=== PATIENT | male | born 1985 ===

== ENCOUNTER 2023-09-12 17:55 | Emergency (ER) | payer OTHER, SELFPAY ==
[2023-09-12 17:58] VITALS: BP 110/70; PULSE 77; RESP 16; O2SAT 98; BMI 25.7
--- NOTE | 2023-09-12 18:28 | ED_ITS ---
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 He has a small laceration in his webspace between his thumb and index finger. He is not up-to-date on his tetanus. He is otherwise quite healthy. He has had no range of motion deficit of his hand. Good hemostasis. Related Data Home Medications ?Medication ?Instructions ?Recorded ?Confirmed No Known Home Medications 09/12/23 09/12/23 Allergies Allergy/AdvReac Type Severity Reaction Status Date / Time No Known Drug Allergies Allergy Verified 09/12/23 18:01 Review of Systems Status of ROS: Reports: 6 or more systems reviewed and unremarkable except as noted in History and below [facility] Social History Smoking Status: Current every day smoker What tobacco products do you use: cigarettes Do you use any of these nicotine containing products: None Second hand tobacco smoke exposure: No How often do you have a drink containing alcohol: 2-3 times a week How often do you have six or more drinks on one occasion: Less than monthly AUDIT-C Alcohol total score: 4 Non-prescribed substance use: marijuana (any form) Exam Narrative: Exam Narrative: Objective: Vital signs are within normal limits at He has got a small 3/4 cm laceration that is superficial and tends an shoulder through the web space between the thumb and index finger. Normal neurovascular and functional evaluation of his hand and fingers. Const: Vital Signs, click to edit/add: Vital Signs - 24 hr 09/12/23 17:58 Pulse Rate [Pulse Oximeter] 77 Respiratory Rate 16 Blood Pressure [Ri ght Upper Arm] 110/70 Pulse Oximetry 98 Oxygen Delivery Me thod Room Air Course Vital Signs Vital signs: Initial Vital Signs Temperature Source Temporal Artery Scan 09/12/23 17:58 Pulse Rate 77 09/12/23 17:58 Respiratory Rate 16 09/12/23 17:58 Blood Pressure 110/70 09/12/23 17:58 Blood Pressure Mean 83 09/12/23 17:58 Blood Pressure Position Sitting 09/12/23 17:58 Pulse Oximetry 98 09/12/23 17:58 Oxygen Delivery Method Room Air 09/12/23 17:58 Vital Signs Pulse Rate 77 09/12/23 17:58 Respiratory Rate 16 09/12/23 17:58 Blood Pressure 110/70 09/12/23 17:58 Pulse Oximetry 98 09/12/23 17:58 Oxygen Delivery Method Room Air 09/12/23 17:58 Pulse Rate 77 09/12/23 17:58 Respiratory Rate 16 09/12/23 17:58 Blood Pressure 110/70 09/12/23 17:58 Pulse Oximetry 98 09/12/23 17:58 Oxygen Delivery Method Room Air 09/12/23 17:58 Medications Administered Medications: Discontinued Medications Generic Name Dose Route Start Last Admin Trade Name Freq PRN Reason Stop Dose Admin Diphtheria/Tetanus/Acell Pertussis 0.5 ml 09/12/23 18:26 09/12/23 18:35 Tetanus/Diphth/Pertussis 0.5 Ml Syringe IM 09/12/23 18:27 0.5 ml .ONCE ONE Administration Medical Decision Making MDM Narrative Medical decision making narrative: [age] year white male with a small cut on the webspace of between his thumb and fingers for finger. At this point he will be updated his Tdap, after sterile cleansing and irrigation I Dermabonded shot the wound with good skin edge approximation good hemostasis. Would recommend keeping this dry for the next week. Would also watch for redness or infection. Return if problems or concerns. Would keep send out a water at work for the next 5-7 days. Discharge Plan Discharge Clinical Impression: Hand laceration Patient Disposition: Home, Self-Care Condition: Improved Additional Instructions: Keep the hand dry for at least 3-4 days, would have it in water at work for at least 5-7 days. May use rubber glove to cover at work. Watch for redness infection, return if problems or concerns. Activity Level: Light activity Discharge Diet: Regular Prescriptions: No Action No Known Home Medications Stand Alone Forms: [facility] Info Instructions
[2023-09-12] MEDS: TETANUS/DIPHTH/PERTUSSIS 0.5 ML SYRINGE IM (18:35)
--- OUTSIDE RECORDS SUMMARY | 2023-09-12 18:42 | XMS_ITS | Continuity of Care Document ---
Author Name [facility] Organization [facility] Care Team Providers Care Lead Web Developer Name Role Phone [facility] Unavailable Unavailable Problems Combined list of problems from Department of Defense and Veterans Affairs facilities. It does not include entries that were removed or entered in error. Problem Status Onset Date Problem Type Date of Resolution Comments Source Exposure to potentially hazardous substance ([facility] [id number]) Active 05/16/19 24 Condition May 16, 2023 Entered By: ТАТЬЯНА PRUITT Comment: [facility] Documentation Initiative [facility] joint stiffness of the wrist Active Condition DoD visit for: screening mental / developmental disorders Inactive Condition DoD visit for: ears / hearing exam Active Condition DoD visit for: screening exam depression Inactive Condition DoD tobacco use Active Condition DoD Need For Prophylactic Antibiotics Inactive Condition DoD visit for: services physical Active Condition DoD visit for: request expert evidence Inactive Condition DoD joint pain, localized in the wrist Active Condition [facility] Removal Of Sutures Inactive Condition [facility] Surgical Dressing Change Inactive Condition [facility] Observation For Suspected Condition Active Condition DoD Need For Vaccination MMR Inactive Condition DoD visit for: screening exam pulmonary tuberculosis Active Condition DoD visit: ears/hearing exam for hearing conservation, treatment Active Condition DoD visit for: services physical accession Active Condition [facility] Alcohol abuse Active Condition [facility] Cannabis dependence Active Condition [facility] Nicotine dependence Active Condition [facility] Stress and adjustment reaction Active Condition [facility] Well adult Active Condition [facility] Alcohol dependence Inactive Condition 09/13/2022 [facility] PAIN, NECK/CERVICALGIA Inactive Condition 07/06/2022 [facility] Diagnosis: ICD-10-CM F43.9 Reaction to severe stress, unspecified Active Diagnosis [facility] Diagnosis: ICD-10-CM F12.20 Cannabis dependence, uncomplicated Active Diagnosis [facility] Diagnosis: ICD-10-CM R07.9 Chest pain, unspecified Active Diagnosis [facility] Diagnosis: ICD-10-CM Z13.6 Encounter for screening for cardiovascular disorders Active Diagnosis [facility] Medications Combined list of outpatient medications from Department of Defense and Veterans Affairs facilities.Medications provided include 1) outpatient medications from the last 15 months, and 2) patient-reported medications. Medication Details Route Status Patient Instructions Prescription Expires Prescription Number Last Dispense Date Ordering Provider Order Date Order Qty Source NICOTINE POLACRILEX 4MG TAB,CHEWG GUM NICOTINE POLACRIL EX 4MG TAB,CHEW G GUM Active CHEW 1 PIECE IN MOUTH EVERY HOUR DIRECTED TO QUIT TOBACCO TO QUIT TOBACCO Nov 23, 2022 110 Nov 24, 2023 [id number] Nov 30, 2022 NESS,DONNA VIA O [facility] ORAL ACTIVE 11/24/2023 [id number] NESS,SYLV IA O 2022 110 [facility] Allergies, Adverse Reactions, Alerts Combined list of allergies from [facility] facilities. It does not include entries that were removed or entered in error. Substance Category Reaction Severity Reaction type Status Date Reported Comments Source No Known Allergies Drug allergy (disorder) active 06/25/2009 Kory Mixon [place] Immunizations Combined list of available immunizations from the [facility] and [facility] facilities. Immunization Series Date Given Administered By Site Reaction Lot Number CVX Code Drug Line Service Supervisor Status Comments Source TDAP 2013 115 complet ed GlaxoSmit hKline,52 DM5,08/09 [facility] INFLUENZA, UNSPECIFIED FORMULATION 2012 88 complet ed [facility] influenza, live, intranasal, quadrivalent 1 2012 [id number] [place] [employer]. (MED) complet ed influenza , live, intranasa l, quadrival ent [facility] anthrax vaccine 4 2012 [id number] [facility] [employer] [facility] [place] ([facility]) complet ed anthrax vaccine [facility] anthrax vaccine 3 2011 [id number] [employer] [facility] Josue (MIP) complet ed anthrax vaccine DoD typhoid Vi capsular polysaccharid e vaccine 1 2011 [id number] Sanofi Pasteur ([facility]) complet ed typhoid Vi capsular polysacch aride vaccine DoD Influenza, seasonal, injectable, preservative free 1 2011 [id number] Sanofi Pasteur ([facility]) complet ed Influenza , seasonal, injectabl e, preservat melo free DoD Influenza, seasonal, injectable, preservative free 1 2010 [id number] 140 Sanofi Pasteur ([facility]) complet ed Influenza , seasonal, injectabl e, preservat melo free DoD hepatitis A vaccine, adult dosage 2 2010 [id number] 52 SmithKline (SKB) complet ed hepatitis A vaccine, adult dosage DoD influenza virus vaccine, split virus (incl. purified surface antigen)-reti red CODE 1 2009 [id number] 15 Sanofi Pasteur ([facility]) complet ed influenza virus vaccine, split virus (incl. purified surface antigen)- retired CODE DoD anthrax vaccine 2 2009 [id number] [employer] [place] ([facility]) complet ed anthrax vaccine DoD anthrax vaccine 1 2009 [id number] [employer] [place] ([facility]) complet ed anthrax vaccine DoD vaccinia (smallpox) vaccine 1 2009 [id number] 75 Unknown (UNK) complet ed vaccinia (smallpox ) vaccine DoD typhoid Vi capsular polysaccharid e vaccine 1 2009 [id number] Sanofi Pasteur ([facility]) complet ed typhoid Vi capsular polysacch aride vaccine DoD measles, mumps and rubella virus vaccine 1 2009 [id number] SmithKline (SKB) complet ed measles, mumps and rubella virus vaccine DoD measles, mumps and rubella virus vaccine 1 2009 [id number] 03 Merck (MSD) complet ed measles, mumps and rubella virus vaccine DoD varicella virus vaccine 1 2009 [id number] 21 Unknown (UNK) Not Given varicella virus vaccine DoD hepatitis B vaccine, adult dosage 1 2009 [id number] 43 Unknown (UNK) Not Given hepatitis B vaccine, adult dosage DoD hepatitis A vaccine, adult dosage 1 2009 [id number] 52 Smithine (SKB) complet ed hepatitis A vaccine, adult dosage DoD influenza virus vaccine, live, attenuated, for intranasal use 1 2009 [id number] 111 Sanofi Pasteur ([facility]) complet ed influenza virus vaccine, live, attenuate d, for intranasa l use DoD Novel influenza-H1N 1-09, injectable 1 2009 [id number] 127 Novartis Visualant l Diandra. (NOV) complet ed Novel influenza -F0C1-32, injectabl e DoD poliovirus vaccine, inactivated 1 2009 [id number] 10 Sanofi Pasteur ([facility]) complet ed polioviru s vaccine, inactivat ed DoD meningococcal polysaccharid e (groups A, C, Y and W-135) diphtheria toxoid conjugate vaccine (MCV4P) 1 2009 [id number] 114 SmithKline (SKB) complet ed meningoco ccal polysacch aride (groups A, C, Y and W-135) diphtheri a toxoid conjugate vaccine (MCV4P) DoD tetanus toxoid, reduced diphtheria toxoid, and acellular pertu is vaccine, adsorbed 1 2009 [id number] 115 Sanofi Pasteur ([facility]) complet ed tetanus toxoid, reduced diphtheri a toxoid, and acellular pertussis vaccine, adsorbed DoD Novel influenza-H1N 1-09, injectable 1 2009 [id number] 1 127 Novartis GetQuik. (NOV) complet ed Novel influenza -U7D4-64, injectabl e DoD Results Combined list of recent chemistry, hematology and other laboratory results from Department of Defense and Veterans Affairs, ranging from 15 months to all on record, depending upon the facility. Order Name Results Value Reference Range Date Interpretation Specimen Comments Source HEMOGLOBI N A1C HEMOGLOBIN A1C/HEMOGLO BIN.TOTAL IN BLOOD 5.2 4.0 - 6.0 07/06 Specimen Type: BLOOD Comment: Values obtained from A1C measurement s can vary. For typical A1C assays, a reported value of 7.0 could actually be between 6.7 and 7.3 if measured by a reference method. A reported value of 9.0 could actually be between 8.7 and 9.3. Ref: http://www. ngsp.org/[place] Pdata.asp Ordering Provider: VALENTINE ABRAHAM Report Released Date/Time: Jul 06, 2022 09:25 AM Reporting Lab: [facility] [address] Performing Lab: [facility] [address] [facility] LEUKOCYTES [#/VOLUME] IN BLOOD BY AUTOMATED COUNT 6.51 10*3/u L 4.0 - 11.0 07/06 Specimen Type: BLOOD No comment entered. Ordering Provider: VALENTINE ABRAHAM Report Released Date/Time: Jul 06, 2022 09:25 AM Reporting Lab: [facility] [address] Performing Lab: [facility] [address] [place] [facility] CBC ERYTHROCYTE S [#/VOLUME] IN BLOOD BY AUTOMATED COUNT 4.84 10*6/u L 4.6 - 6.2 07/06 Specimen Type: BLOOD No comment entered. Ordering Provider: VALENTINE ABRAHAM Report Released Date/Time: Jul 06, 2022 09:25 AM Reporting Lab: [facility] [address] Performing Lab: [facility] [address] [place] [facility] CBC HEMOGLOBIN [MASS/VOLUM E] IN BLOOD 14.8 g/dL 13.5 - 17.9 07/06 Specimen Type: BLOOD No comment entered. Ordering Provider: VALENTINE ABRAHAM Report Released Date/Time: Jul 06, 2022 09:25 AM Reporting Lab: [facility] [address] Performing Lab: [facility] [address] [place] [facility] CBC HEMATOCRIT [VOLUME FRACTION] OF BLOOD BY AUTOMATED COUNT 44.4 41 - 54 07/06 Specimen Type: BLOOD No comment entered. Ordering Provider: VALENTINE ABRAHAM Report Released Date/Time: Jul 06, 2022 09:25 AM Reporting Lab: [facility] [address] Performing Lab: [facility] [address] [place] [facility] CBC MCV [ENTITIC VOLUME] BY AUTOMATED COUNT 91.7 fL 80 - 100 07/06 Specimen Type: BLOOD No comment entered. Ordering Provider: VALENTINE ABRAHAM Report Released Date/Time: Jul 06, 2022 09:25 AM Reporting Lab: [facility] [address] Performing Lab: [facility] [address] [facility] [facility] CBC MCH [ENTITIC MASS] BY AUTOMATED COUNT 30.6 pg 27 - 33 07/06 Specimen Type: BLOOD No comment entered. Ordering Provider: VALENTINE ABRAHAM Report Released Date/Time: Jul 06, 2022 09:25 AM Reporting Lab: [facility] [address] Performing Lab: [facility] [address] [place] [facility] CBC MCHC [MASS/VOLUM E] BY AUTOMATED COUNT 33.3 g/dL 32.0 - 37.5 07/06 Specimen Type: BLOOD No comment entered. Ordering Provider: VALENTINE ABRAHAM Report Released Date/Time: Jul 06, 2022 09:25 AM Reporting Lab: [facility] [address] Performing Lab: [facility] [address] [place] [facility] CBC PLATELETS [#/VOLUME] IN BLOOD BY AUTOMATED COUNT 202 10*3/u L 150 - 400 07/06 Specimen Type: BLOOD No comment entered. Ordering Provider: VALENTINE ABRAHAM Report Released Date/Time: Jul 06, 2022 09:25 AM Reporting Lab: [facility] [address] Performing Lab: [facility] [address] [place] [facility] CBC PLATELET MEAN VOLUME [ENTITIC VOLUME] IN BLOOD BY AUTOMATED COUNT 9.6 fL 7.4 - 10.4 07/06 Specimen Type: BLOOD No comment entered. Ordering Provider: VALENTINE ABRAHAM Report Released Date/Time: Jul 06, 2022 09:25 AM Reporting Lab: [facility] [address] Performing Lab: [facility] [address] [place] [facility] CBC ERYTHROCYTE DISTRIBUTIO N WIDTH [RATIO] BY AUTOMATED COUNT 13.4 11.5 - 14.5 07/06 Specimen Type: BLOOD No comment entered. Ordering Provider: VALENTINE ABRAHAM Report Released Date/Time: Jul 06, 2022 09:25 AM Reporting Lab: [facility] [address] Performing Lab: [facility] [phone] [place] [facility] BASIC METABOLIC PANEL+MG CREATININE [MASS/VOLUM E] IN SERUM OR PLASMA 0.8 mg/dL 0.7 - 1.2 07/06 Specimen Type: PLASMA No comment entered. Ordering Provider: VALENTINE ABRAHAM Report Released Date/Time: Jul 06, 2022 09:25 AM Reporting Lab: [facility] [address] Performing Lab: [facility] [address] [place] [facility] BASIC METABOLIC PANEL+MG UREA NITROGEN [MASS/VOLUM E] IN SERUM OR PLASMA 24 mg/dL 8 - 26 07/06 Specimen Type: PLASMA No comment entered. Ordering Provider: VALENTINE ABRAHAM Report Released Date/Time: Jul 06, 2022 09:25 AM Reporting Lab: [facility] [address] Performing Lab: [facility] [address] [place] [facility] BASIC METABOLIC PANEL+MG GLUCOSE [MASS/VOLUM E] IN SERUM OR PLASMA 98 mg/dL 70 - 100 07/06 Specimen Type: PLASMA No comment entered. Ordering Provider: VALENTINE ABRAHAM Report Released Date/Time: Jul 06, 2022 09:25 AM Reporting Lab: [facility] [address] Performing Lab: [facility] [address] [place] [facility] BASIC METABOLIC PANEL+MG SODIUM [MOLES/VOLU ME] IN SERUM OR PLASMA 141 mmol/L 136 - 145 07/06 Specimen Type: PLASMA No comment entered. Ordering Provider: VALENTINE ABRAHAM Report Released Date/Time: Jul 06, 2022 09:25 AM Reporting Lab: [facility] [address] Performing Lab: [facility] [address] [place] [facility] BASIC METABOLIC PANEL+MG POTASSIUM [MOLES/VOLU ME] IN SERUM OR PLASMA 4.0 mmol/L 3.5 - 5.1 07/06 Specimen Type: PLASMA No comment entered. Ordering Provider: VALENTINE ABRAHAM Report Released Date/Time: Jul 06, 2022 09:25 AM Reporting Lab: [facility] [address] Performing Lab: [facility] [address] [place] [facility] BASIC METABOLIC PANEL+MG CHLORIDE [MOLES/VOLU ME] IN SERUM OR PLASMA 109 mmol/L 98 - 107 07/06 H Specimen Type: PLASMA No comment entered. Ordering Provider: VALENTINE ABRAHAM Report Released Date/Time: Jul 06, 2022 09:25 AM Reporting Lab: [facility] [address] Performing Lab: [facility] [address] [place] [facility] BASIC METABOLIC PANEL+MG CARBON DIOXIDE, TOTAL [MOLES/VOLU ME] IN SERUM OR PLASMA 24 mmol/L 22 - 29 07/06 Specimen Type: PLASMA No comment entered. Ordering Provider: VALENTINE ABRAHAM Report Released Date/Time: Jul 06, 2022 09:25 AM Reporting Lab: [facility] [address] Performing Lab: [facility] [address] [place] [facility] BASIC METABOLIC PANEL+MG CALCIUM [MASS/VOLUM E] IN SERUM OR PLASMA 9.0 mg/dL 8.4 - 10.2 07/06 Specimen Type: PLASMA No comment entered. Ordering Provider: VALENTINE ABRAHAM Report Released Date/Time: Jul 06, 2022 09:25 AM Reporting Lab: [facility] [address] Performing Lab: [facility] [address] [place] [facility] BASIC METABOLIC PANEL+MG MAGNESIUM [MASS/VOLUM E] IN SERUM OR PLASMA 1.9 mg/dL 1.6 - 2.6 07/06 Specimen Type: PLASMA No comment entered. Ordering Provider: VALENTINE ABRAHAM Report Released Date/Time: Jul 06, 2022 09:25 AM Reporting Lab: [facility] [address] Performing Lab: [facility] [address] [place] [facility] BASIC METABOLIC PANEL+MG ANION GAP IN SERUM OR PLASMA 8 mmol/L 5 - 15 07/06 Specimen Type: PLASMA No comment entered. Ordering Provider: VALENTINE ABRAHAM Report Released Date/Time: Jul 06, 2022 09:25 AM Reporting Lab: [facility] [address] Performing Lab: [facility] [address] [place] [facility] BASIC METABOLIC PANEL+MG GLOMERULAR FILTRATION RATE/1.73 SQ M.PREDICTED [VOLUME RATE/AREA] IN SERUM, PLASMA OR BLOOD BY CREATININE- BASED FORMULA (CKD-EPI) >90 60 07/06 Specimen Type: PLASMA No comment entered. Ordering Provider: VALENTINE ABRAHAM Report Released Date/Time: Jul 06, 2022 09:25 AM Reporting Lab: [facility] [address] Performing Lab: [facility] [address] [place] [facility] C-REACTIV E PROTEIN C REACTIVE PROTEIN [MASS/VOLUM E] IN SERUM OR PLASMA BY HIGH SENSITIVITY METHOD 1.62 mg/L <5.00 - 5.00 07/06 Specimen Type: PLASMA No comment entered. Ordering Provider: VALENTINE ABRAHAM Report Released Date/Time: Jul 06, 2022 09:25 AM Reporting Lab: [facility] [address] Performing Lab: [facility] [address] [place] [facility] LIPID PANEL,NON -FASTING CHOLESTEROL [MASS/VOLUM E] IN SERUM OR PLASMA 216 mg/dL <199 - 199 07/06 H Specimen Type: PLASMA No comment entered. Ordering Provider: VALENTINE ABRAHAM Report Released Date/Time: Jul 06, 2022 09:25 AM Reporting Lab: [facility] [address] Performing Lab: [facility] [address] [place] [facility] LIPID PANEL,NON -FASTING CHOLESTEROL IN HDL [MASS/VOLUM E] IN SERUM OR PLASMA 52 mg/dL 40 07/06 Specimen Type: PLASMA No comment entered. Ordering Provider: VALENTINE ABRAHAM Report Released Date/Time: Jul 06, 2022 09:25 AM Reporting Lab: [facility] [address] Performing Lab: [facility] [address] [place] [facility] LIPID PANEL,NON -FASTING CHOLESTEROL IN LDL [MASS/VOLUM E] IN SERUM OR PLASMA BY CALCULATION 152 mg/dL <99 - 99 07/06 H Specimen Type: PLASMA No comment entered. Ordering Provider: VALENTINE ABRAHAM Report Released Date/Time: Jul 06, 2022 09:25 AM Reporting Lab: [facility] [address] Performing Lab: [facility] [address] [place] [facility] LIPID PANEL,NON -FASTING CHOLESTEROL IN VLDL [MASS/VOLUM E] IN SERUM OR PLASMA BY CALCULATION 12 mg/dL <29 - 29 07/06 Specimen Type: PLASMA No comment entered. Ordering Provider: VALENTINE ABRAHAM Report Released Date/Time: Jul 06, 2022 09:25 AM Reporting Lab: [facility] [address] Performing Lab: [facility] [address] [place] [facility] LIPID PANEL,NON -FASTING CHOLESTEROL NON HDL [MASS/VOLUM E] IN SERUM OR PLASMA 164 mg/dL <129 - 129 07/06 H Specimen Type: PLASMA No comment entered. Ordering Provider: VALENTINE ABRAHAM Report Released Date/Time: Jul 06, 2022 09:25 AM Reporting Lab: [facility] [address] Performing Lab: [facility] [address] [place] [facility] LIPID PANEL,NON -FASTING TRIGLYCERID E [MASS/VOLUM E] IN SERUM OR PLASMA 59 mg/dL <149 - 149 07/06 Specimen Type: PLASMA No comment entered. Ordering Provider: VALENTINE ABRAHAM Report Released Date/Time: Jul 06, 2022 09:25 AM Reporting Lab: [facility] [address] Performing Lab: [facility] [address] [place] [facility] SED RATE ERYTHROCYTE SEDIMENTATI ON RATE 4 mm/h 5 - 15 07/06 L Specimen Type: BLOOD No comment entered. Ordering Provider: VALENTINE ABRAHAM Report Released Date/Time: Jul 06, 2022 09:25 AM Reporting Lab: [facility] [address] Performing Lab: [facility] [address] [place] [facility] Encounters Combined list of: 1) Encounters from Department of Veterans Affairs facilities going back up to thelast 18 months. 2) Encounters from the Department of Defense facilities going back up to 280 months. Location Location Details Encounter Type Encounter Number Reason For Visit Attending Provider ADM Date DC Date Status Disposition Source Kory Mixon, [place]([facility] ) OUTPATIENT [id number] CARLEEN AGOSTO 05/21 Released w/o Limitations [place] RODRIGUEZ, Kory Kimberley , [place]([facility]omet [facility]) Kory Mixon Kimberley, [facility]) OUTPATIENT [id number] hearing test MATTHEW PARADA 05/21 Released w/o Limitations [place] RODRIGUEZ, Koyr Chu , [facility] ) [place] RODRIGUEZ, Kory Chu, [place]) OUTPATIENT [id number] IMM WILNER LUND 05/24 Released w/o Limitations [place] RODRIGUEZ, Kory Chu , [place]([facility] p[facility] Station ) Kory Mixon, [place]([facility] OUTPATIENT [id number] IMMUN E CHANDU CASTANEDA 06/25 Released w/o Limitations [facility], Kory Chu , [place]([facility]) Kory Mixon, [place](ER) OUTPATIENT [id number] MAYCO DE LA CRUZ 08/27 Released w/o Limitations [facility] , [place]([facility]) Kory Mixon, [place]([facility]) OUTPATIENT [id number] LIBERTAD Pathak N 08/31 Released w/o Limitations [facility] , [place]([facility] [place] RODRIGUEZ, Kory Chu, [place]([facility]) OUTPATIENT [id number] f/u remoe LIBERTAD Pathak N 09/02 Released w/o Limitations [facility] , [place]([facility], [employer] [place], [place](Physic [place]) OUTPATIENT [id number] rsrp referre d to occupat ional therapy RUPAL DOMÍNGUEZ 06/21 Released w/o Limitations [facility], [employer](Phys ical [place] ) [facility], [employer] [place]) OUTPATIENT [id number] right wrist CARMEN THOMAS 08/24 Released w/o Limitations [facility], [employer] ) [place]) OUTPATIENT [id number] emergen center CARMEN CAMPOS J 11/01 Released w/o Limitations [place] OUTPATIENT [id number] Notes Entered by: SAÚL CHIANG 09 Oct 2012 0907 ------- ------- ------- ------- -- PDHA 2796 [facility] JAMAR ARNOLD 10/09 Released w/o Limitations [place]) [place] [facility] [place] [id number] ALEX BALLESTEROS 01/27 Released w/o Limitations [place] [facility] [place] OUTPATIENT [id number] Notes Entered by: TINA VAUGHN 28 Jan 2013 1233 ------- ------- ------- ------- -- ALEX DAY 01/28 Released w/o Limitations [place]ory [place] [facility] OFFICE O/P EST MOD 30-39 MIN [id number] Diagnos is: ICD-10- CM R07.9 Chest pain, unspeci fied
MIRIAN ABRAHAM 07/06 [facility] Outpatient Encounter [id number] 07/06 [facility] ELECTROCAR DIOGRAM COMPLETE [id number] Diagnos is: ICD-10- CM Z13.6 Encount er for screeni ng for cardiov ascular disorde rs
DANIELITO TRIVEDIO TT A 07/06 [facility] Outpatient Encounter [id number] Diagnos is: ICD-10- CM R07.9 Chest pain, unspeci fied
LEIGHDONNAALLYSON A O 07/12 [facility] Outpatient Encounter [id number] 08/25 [facility] Outpatient Encounter [id number] 08/25 [facility] PSYCH DIAGNOSTIC EVALUATION [id number] Diagnos is: ICD-10- CM F12.20 Cannabi s depende nce, uncompl icated< br/> SARA LAND VIA G 09/01 [facility] [facility] Outpatient Encounter [id number] MARY MENDEZ 09/11 [facility] PSYCH DIAGNOSTIC EVALUATION [id number] Diagnos is: ICD-10- CM F12.20 Cannabi s depende nce, uncompl icated< br/> [place] DE [place]AR[place] 09/13 [facility] Outpatient Encounter [id number] 09/14 [facility] Outpatient Encounter [id number] 09/16 [facility] PSYTX W PT 45 MINUTES [id number] Diagnos is: ICD-10- CM F12.20 Cannabi s depende nce, uncompl icated< br/> [place] DE [place] 09/20 [facility] PSYTX W PT 45 MINUTES [id number] Diagnos is: ICD-10- CM F12.20 Cannabi s depende nce, uncompl icated< br/> [place] 10/04 [facility] PSYTX W PT 45 MINUTES [id number] Diagnos is: ICD-10- CM F12.20 Cannabi s depende nce, uncompl icated< br/> [place] 10/11 [facility] PSYTX W PT 45 MINUTES [id number] Diagnos is: ICD-10- CM F12.20 Cannabi s depende nce, uncompl icated< br/> [place] 11/22 [facility] PSYTX W PT 45 MINUTES [id number] Diagnos is: ICD-10- CM F12.20 Cannabi s depende nce, uncompl icated< br/> [place] 11/29 [facility] PSYTX W PT 45 MINUTES [id number] Diagnos is: ICD-10- CM F12.20 Cannabi s depende nce, uncompl icated< br/> [place] 12/06 [facility] PSYTX W PT 45 MINUTES [id number] Diagnos is: ICD-10- CM F12.20 Cannabi s depende nce, uncompl icated< br/> [place] 12/13 [facility] PSYTX W PT 45 MINUTES [id number] Diagnos is: ICD-10- CM F12.20 Cannabi s depende nce, uncompl icated< br/> [place] 12/19 [facility] HC PRO PHONE CALL 5-10 MIN [id number] Diagnos is: ICD-10- CM F12.20 Cannabi s depende nce, uncompl icated< br/> [place] 12/27 [place] [facility] PSYTX W PT 45 MINUTES [id number] Diagnos is: ICD-10- CM F12.20 Cannabi s depende nce, uncompl icated< br/> [place] 01/04 [place] [facility] PSYTX W PT 45 MINUTES [id number] Diagnos is: ICD-10- CM F12.20 Cannabi s depende nce, uncompl icated< br/> [place] 01/10 [place] [facility] PSYTX W PT 45 MINUTES [id number] Diagnos is: ICD-10- CM F12.20 Cannabi s depende nce, uncompl icated< br/> [place] 01/17 [place] [facility] PSYTX W PT 45 MINUTES [id number] Diagnos is: ICD-10- CM F12.20 Cannabi s depende nce, uncompl icated< br/> [place] 01/24 [place] [facility] PSYCH DIAGNOSTIC EVALUATION [id number] Diagnos is: ICD-10- CM F43.9 Reactio n to severe stress, unspeci fied
DECLAN HICKEY M 01/31 [facility] PSYTX W PT 45 MINUTES [id number] Diagnos is: ICD-10- CM F43.9 Reactio n to severe stress, unspeci fied
DECLAN HICKEYY M 02/06 [place] [facility] PSYTX W PT 45 MINUTES [id number] Diagnos is: ICD-10- CM F12.20 Cannabi s depende nce, uncompl icated< br/> [place] 02/07 [place] [facility] Outpatient Encounter [id number] 02/08 [facility] PSYTX W PT 45 MINUTES [id number] Diagnos is: ICD-10- CM F43.9 Reactio n to severe stress, unspeci fied
DECLAN HICKEY M 02/13 [facility] PSYTX W PT 45 MINUTES [id number] Diagnos is: ICD-10- CM F43.9 Reactio n to severe stress, unspeci fied
DECLAN HICKEY M 02/20 [facility] PSYTX W PT 30 MINUTES [id number] Diagnos is: ICD-10- CM F12.20 Cannabi s depende nce, uncompl icated< br/> [place] 03/07 [facility] PSYTX W PT 45 MINUTES [id number] Diagnos is: ICD-10- CM F43.9 Reactio n to severe stress, unspeci fied
DECLAN HICKEY M 03/13 [facility] PSYTX W PT 60 MINUTES [id number] Diagnos is: ICD-10- CM F43.9 Reactio n to severe stress, unspeci fied
DECLAN HICKEY M 03/20 [facility] PSYCH DIAGNOSTIC EVALUATION [id number] Diagnos is: ICD-10- CM F43.9 Reactio n to severe stress, unspeci fied
ORTEGA HERNANDEZ 03/29 [facility] PSYTX W PT 30 MINUTES [id number] Diagnos is: ICD-10- CM F43.9 Reactio n to severe stress, unspeci fied
ORTEGA HERNANDEZ CA E 04/05 [facility] [place] [facility] Outpatient Encounter [id number] 06/07 [facility] Procedures Combined list of: 1) Procedures from Department of [facility] facilities going back up to thelast 18 months, not all [place] non-surgical procedures are included; 2) All procedures from the Department of Defense facilities. Procedure Procedure Type Code Date Perfomer Comments Sourc e Threshold Audiogram (Pure Tone) Threshold Audiogram (Pure Tone) 32793 01/27/2013 ALEX BALLESTEROS [facility] Occupational Therapy Evaluation Occupational Therapy Evaluation 27900 08/24/2010 CARMEN THOMAS [facility] Physical Therapy Service Evaluation Physical Therapy Service Evaluation 90250 06/21/2010 RUPAL DOMÍNGUEZ [facility] Immunization Administration By Injection, One Vaccine Immunization Administration By Injection, One Vaccine 42423 06/25/2009 CHANDU CASTANEDA [facility] Vaccines Viral Measles, Mumps and Rubella, Live Vaccines Viral Measles, Mumps and Rubella, Live 03937 06/25/2009 CHANDU CASTANEDA [facility] Injection, penicillin G benzathine, up to 1,200,000 units 05/25/2009 WILNER LUND [facility] Hepatitis A Vaccine Adult Dosage (Intramuscular Use) Hepatitis A Vaccine Adult Dosage (Intramuscular Use) 37200 05/25/2009 [facility]IL[facility] Vaccines Viral Measles, Mumps and Rubella, Live Vaccines Viral Measles, Mumps and Rubella, Live 80120 05/25/2009 WILNER LUND Meningococcal Polysaccharide Diphtheria Toxoid Conjugate Vaccine 05/25/2009 [facility]IL[facility] Vaccines Viral Polio, Inactivated Vaccines Viral Polio, Inactivated 51438 05/25/2009 WILNER LUND Influenza Virus Vaccine Pandemic Formulation Influenza Virus Vaccine Pandemic Formulation 39781 05/25/2009 WILNER LUND Physician Supervised Injection Intramuscular Antibiotic Physician Supervised Injection Intramuscular Antibiotic 40520 05/25/2009 WILNER LUND Venipuncture Venipuncture 49442 05/25/2009 KARL LUND Tdap Vaccine Tdap Vaccine 68373 05/25/2009 KARL LUND Influenza Virus Vaccine Intranasal Live Attenuated 05/25/2009 WILNER LUND [facility] Immunization Administration By Injection, Each Additional Vaccine 05/25/2009 WILNER LUND [facility] Immunization Admin By Intranasal / Oral Route One Vaccine Immunization Admin By Intranasal / Oral Route One Vaccine 78303 05/25/2009 WILNER LUND [facility] Skin Test Anergy Tuberculin Intradermal Skin Test Anergy Tuberculin Intradermal 44342 05/25/2009 WILNER LUND [facility] Audiometry Group Testing Audiometry Group Testing 97207 05/21/2009 MATTHEW PARADA [facility] Visual Function Screening Visual Function Screening 34125 05/21/2009 CARLEEN AGOSTO [facility] SIMPLE REPAIR OF SUPERFICIAL WOUNDS OF FACE, EARS, EYELIDS, NOSE, LIPS AND/OR MUCOUS MEMBRANES; 2.5 CM OR LESS 08/26/2009 [facility] IMMUNIZATION ADMINISTRATION (INCLUDES PERCUTANEOUS, INTRADERMAL, SUBCUTANEOUS, OR INTRAMUSCULAR INJECTIONS); 1 VACCINE (SINGLE OR COMBINATION VACCINE/TOXOID) 06/25/2009 [facility] BUPRENORPHINE IMPLANT, 74.2 MG 05/24/2009 [facility] AUDIOMETRIC TESTING OF GROUPS 05/21/2009 [facility] VIS FUNCT SCREEN,AUTOMAT/SEMI- AUTOMAT BILAT QUANT DETERM VISUAL ACUITY,OCULAR ALIGN,COLOR VISION,PSEUDOISOCHRO MAT PLATES,& FIELD VIS (MAY INC ALL/SOME SCRN DETERM FOR CONTRAST SENSITIV,VIS UND GLARE) 05/21/2009 [facility] PURE TONE AUDIOMETRY (THRESHOLD); AIR ONLY 01/27/2013 [facility] TYPHOID VACCINE, CAPSULAR POLYSACCHARIDE (VICPS), FOR INTRAMUSCULAR USE 11/20/2011 [facility] OCCUPATIONAL THERAPY EVALUATION 08/24/2010 [facility] HEPATITIS A VACCINE (HEPA), ADULT DOSAGE, FOR INTRAMUSCULAR USE 06/21/2010 [facility] PHYSICAL THERAPY EVALUATION 06/21/2010 [facility] ANTHRAX VACCINE, FOR SUBCUTANEOUS OR INTRAMUSCULAR USE 10/21/2009 [facility] VACCINIA IMMUNE GLOBULIN, HUMAN, FOR INTRAMUSCULAR USE 09/24/2009 [facility] Social History Combined list of available smoking, tobacco, and other social history from Department of Defense and Veterans Affairs facilities. Social History Type Response Date Comment Sourc e Tobacco smoking status NHIS VA-TOBACCO USE [place] 30 MIN OF WAKEUP 09/13/2022 [facility] History of tobacco use VA-TOBACCO USER E VERY DAY 09/13/2022 [facility] History of tobacco use VA-TOBACCO USER E VERY DAY 07/06/2022 [facility] History of tobacco use CURRENT TOBACCO USER 09/20/2015 [facility] History of tobacco use CURRENT TOBACCO USER 08/27/2013 [facility] This section is an empty social history section. DoD
--- OUTSIDE RECORDS SUMMARY | 2023-09-12 18:42 | XMS_ITS | Encounter Summary ---
Author Name [facility] Organization [facility] Address [address] [place] [id number] Care Team Providers Care Pile Driving Superintendent Name Role Phone SANTOS PUGA Primary Care Provider Unavailabl e Selected Encounter This section includes the information on record at [place] for the Encounter. Date/Time Encounter Type Encounter Description Reason Pro vider Source Jun 08, 2023 10:56 AM Outpatient Encounter PRIMARY CARE/MEDICINE IHE Encounter Template Text not used by [place] Social History: Smoking Status (Most current) and Tobacco Use (All prior to encounter date) This section includes the most current, and the historical, smoking and tobacco- related health factors from the [place] facility where the Encounter took place. Current Smoking Status This section includes the most current smoking, or tobacco-related health factor, from the [place] facility where the Encounter took place. Date/Time Current Smoking Status Comment Jeff estrada Sep 13, 2022 10:00 AM [place]-TOBACCO USE [place] 30 MIN OF WAKE UP [facility] Tobacco Use History This section includes a history of the smoking, or tobacco-related health factors, that were collected on or before the date of the Encounter. The data comes from the [place] facility where the Encounter took place. 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 [facility] Sep 13, 2022 10:00 AM VA-TOBACCO USE MED NO [facility] Sep 13, 2022 10:00 AM VA-TOBACCO USE MED YES [facility] Sep 13, 2022 10:00 AM VA-TOBACCO USE [place] 30 MIN OF WAKE UP [facility] Sep 13, 2022 10:00 AM VA-TOBACCO USER EVERY DAY [facility] Jul 06, 2022 09:00 AM VA-TOBACCO DOESNT USE WI 30 MIN WAKEUP [facility] Jul 06, 2022 09:00 AM VA-TOBACCO USE 5 TO 15 YEARS [facility] Jul 06, 2022 09:00 AM VA-TOBACCO USE ADVICE [facility] Jul 06, 2022 09:00 AM VA-TOBACCO USE SHINE WORKER NO [facility] Jul 06, 2022 09:00 AM VA-TOBACCO USE MED NO [facility] Jul 06, 2022 09:00 AM VA-TOBACCO USER EVERY DAY [facility] Sep 20, 2015 01:10 PM CURRENT TOBACCO USER [facility] Aug 27, 2013 07:37 AM CURRENT TOBACCO USER [facility] Encounter Notes: All associated encounter notes This section contains the clinical notes associated to the Encounter. Date/Time Encounter Note(s) Provider Source Jun 08, 2023 10:56 AM REPORT OF CONTACT: LOCAL TITLE: APPOINTMENT SCHEDULING NOTE STANDARD TITLE: REPORT OF CONTACT DATE OF NOTE: JUN 08, 2023@10:56 ENTRY DATE: JUN 08, 2023@10:56:57 AUTHOR: INDY SCHOFIELD EXP COSIGNER: URGENCY: STATUS: COMPLETED Attempted to schedule Recall/Patient Center Scheduling (PtCSch) Contact attempt made to 1st attempt Letter - Sent letter by regular [place] mail to address on file: [place] [address] [address] 2nd attempt Text message Disposition order request after Jun If calls back, schedule appt for: Return to [facility] on or around ( Jul 01, 2023 ) for a total of 1 appointment(s) /es/ INDY SCHOFIELD MSA PROTECTIVE OFFICER Signed: 06/08/2023 10:57 INDY SCHOFIELD [facility]
--- OUTSIDE RECORDS SUMMARY | 2023-09-12 18:42 | XMS_ITS | Clinical Summary ---
Author Organization [facility] Address [address], [place] [address] Care Team Providers Care Veterinary Virus Serum Inspector Name Role Phone Found, No Pcp MD Primary Care Provider Unavailab le Source Comments You are receiving this document as you are listed as the primary care provider,follow-up provider, or the patient has been referred to you for consultation.This is in compliance with the Medicare and[facility] EHR Incentive Program,which states Providers who transition their patient to another setting of careor provider of care or refers their patient to another provider of care shouldprovide summary care record for each transition of care or referral. [facility] Allergies No known active allergies Medications No known medications Active Problems No known active problems Social History Tobacco Use Types Packs/Day Years Used Date Smoking Tobacco: Every Day Sex and Gender Information Value Date Recorded Sex Assigned at Not on file Gender Identity Not on file Sexual Orientation Not on file Last Filed Vital Signs Vital Sign Reading Time Taken Comments Blood Pressure 140/80 12/10/2019 8:11 AM CDT Pulse 80 12/10/2019 8:11 AM CDT Temperature 37 ??C (98.6 ??F) 12/10/2019 8:11 AM CDT Respiratory Rate 16 12/10/2019 8:11 AM CDT Oxygen Saturation 100% 12/10/2019 8:11 AM CDT Inhaled Oxygen Concentration - - Weight - - Height - - Body Mass Index - - Plan of Treatment Health Maintenance Due Date Last Done Comments Hep C Screening (Preventive Services) 1985 Pneumococcal (1 - PCV) 1991 HIV Screening (Preventive Services) 2001 Adult Preventive Visit 2003 HepB (1) 2004 DTaP/Tdap/Td (3 - Tdap) 10/23/2018 10/24/19 09, 03/16/1999 Cholesterol 2020 COVID-19 Vaccine (2 - 2022-2 4 season) 2022 06/20/2020 Influenza (Season Ended) 2023 Zoster/Shingles (1 of 2) 2035 HPV Vaccine Aged Out No longer eligi ble based on patient's age to complete this topic HepA Aged Out No longer eligi ble based on patient's age to complete this topic Hib Aged Out No longer eligi ble based on patient's age to complete this topic IPV (Polio) Aged Out No longer eligi ble based on patient's age to complete this topic MCV4 Aged Out No longer eligi ble based on patient's age to complete this topic Care Teams Veterinary Virus Serum Inspector Relationship Specialty Start Date End Date Found, No [facility] [address] PCP - General 10/03/13
== END 2023-09-12 18:41 | disposition home or self-care (01) ==
LOC: ED 18:40
PROVIDERS: Emergency Provider Family Medicine
DX: S61.412A Laceration without foreign body of left hand, initial encounter (principal); W26.0XXA Contact with knife, initial encounter
CPT/HCPCS: 12001; 90471; 90715; 99283